=== PATIENT | female | born 1995 | race Caucasian/White ===

== ENCOUNTER 2018-11-26 16:24 | Emergency (ER) | payer OTHER ==
[~2018-11-26] VITALS: Ht 160 cm; Wt 49.9 kg
[2018-11-26 16:45] VITALS: BP 128/88
--- NOTE | 2018-11-26 18:22 | NUR ---
SITTING UPRIGHT IN CHAIR KAYCE BOWER---CONTINUES TO WAIT FOR AVAILABLE ROOM FOR MD JOHN
--- NOTE | 2018-11-26 19:25 | NUR ---
PATIENT AMBULATED TO ER BED 1.
--- NOTE | 2018-11-26 19:30 | NUR ---
PT BIB SELF C/O LEFT FIFTH FINGER PAIN X7 DAYS. PT REPORTS CUTING FINGER WITH KNIFE ON TUESDAY AND REPORTS SHARP 10/10 PAIN THAT RADIATES UP LEFT ARM, PT STATES THAT FENGER IS TENDER TO TOUCH AND MOVEMENT. ERYTHEMA, AND EDMEA PRESENT ON FINGER. PT DENIES N/V OR FEVER. VSS. ER MD TO SEE PT. SAFETY PRECAUTIONS IN PLACE, WILL CONTINUE TO MONITOR. MEDHX: DM II, CHOLECYSTECTOMY RX: LANTUS, HUMALOG
[2018-11-26] MEDS ORDERED: VANCOMYCIN 1,000 MG in DEXTROSE 5% 250 ML IV ONE (19:45)
[2018-11-26 19:51] LABS: BASOPHILS % (AUTO) 0.4 % (0.0-2.0); EOSINOPHILS # (AUTO) 0.1 K/uL (0-0.4); EOSINOPHILS % (AUTO) 1.6 % (0.0-4.0); HEMATOCRIT 39.3 % (36-48); HEMOGLOBIN 13.7 g/dL (12.0-16.0); LYMPHOCYTES # (AUTO) 2.4 K/uL (2.5-16.5); LYMPHOCYTES % (AUTO) 31.7 % (20.5-51.1); MEAN CORPUSCULAR HEMOGLOBIN 31 pg (27-31); MEAN CORPUSCULAR HGB CONC 35 g/dL (33-37); MONOCYTES # (AUTO) 0.6 K/uL (0.8-1.0); MONOCYTES % (AUTO) 7.5 % (1.7-9.3); NEUTROPHILS # (AUTO) 4.5 K/uL (1.8-7.7); NEUTROPHILS % (AUTO) 58.8 % (42.2-75.2); PLATELET COUNT (AUTO) 215 K/uL (140-450); RED BLOOD CELL COUNT(AUTO) 4.47 MIL/uL (4.20-5.40); RED CELL DISTRIBUTION WIDTH 12.5 % (11.6-13.7); WHITE BLOOD COUNT (AUTO) 7.7 K/uL (4.8-10.8)
[2018-11-26] MEDS ORDERED: NACL 0.9% 1,000 ML IV ONE (19:55)
[2018-11-26] MEDS ORDERED: VANCOMYCIN 1,000 MG VIAL ONE (19:57)
[2018-11-26 20:00] LABS: ANION GAP 8.3 (8-16); CARBON DIOXIDE 31.3 mmol/L (21-32); CREATININE 0.6 mg/dL (0.6-1.3); POTASSIUM 3.6 mmol/L (3.5-5.1)
--- NOTE | 2018-11-26 20:08 | NUR ---
PER VERBAL ORDER FROM DR ROPER PT HAND CLEANED WITH SALINE AND BETADINE SOLUTION
[2018-11-26 22:00] VITALS: BP 128/88
--- NOTE | 2018-11-26 22:00 | NUR ---
Patient discharged with v/s stable. Written and verbal after care instructions given and explained. Patient alert, oriented and verbalized understanding of instructions. Ambulatory with steady gait. All questions addressed prior to discharge. ID band removed. Patient advised to follow up with PMD. Rx of bactrim, tramadol, and motrin given. Patient educated on indication of medication including possible reaction and side effects. Opportunity to ask questions provided and answered.
== END 2018-11-26 22:00 | disposition home or self-care (01) ==
LOC: MED 16:24
DX: L03.012 Cellulitis of left finger (principal); E11.9 Type 2 diabetes mellitus without complications
CPT/HCPCS: 36415; 80048; 82948; 85025; 87040; 90471; 90715; 96365; 96366; 99283; J3370; J7030; J7060